=== PATIENT | female | born 1965 | race Caucasian/White ===

== ENCOUNTER → 2018-07-16 | Outpatient (CLI) | payer MEDICAID ==
[2018-07-16 10:26] LABS: microscopic required? NO
[2018-07-16 10:35] LABS: BASOPHIL % 0.5 % (0-2); PLATELET COUNT 253 x10^3mcL (130-400); RED CELL DISTRIBUTION WIDTH 13.3 % (11.5-14.5)
[2018-07-16 10:54] LABS: CHOLESTEROL/HDL RATIO 4.9
[2018-07-16 11:00] LABS: ALBUMIN 3.9 g/dL (3.4-5.0); ALKALINE PHOSPHATASE 98 U/L (46-116); ALT/SGPT 23 U/L (14-59); AST/SGOT 19 U/L (15-37); BILIRUBIN TOTAL 0.75 mg/dL (0.20-1.00); CARBON DIOXIDE 27.7 mmol/L (21-32); CHLORIDE SERUM 102 mmol/L (98-107); CREATININE SERUM 0.7 mg/dL (0.6-1.0); FREE T4 1.06 ng/dL (0.76-1.46); GFR1 > 60 mL/min; GLUCOSE SERUM 96 mg/dL (74-106); MAGNESIUM 2.1 mg/dL (1.8-2.4); POTASSIUM SERUM 4.2 mmol/L (3.5-5.1); SODIUM SERUM 138 mmol/L (136-145); TOTAL PROTEIN, SERUM 7.5 g/dL (6.4-8.2)
[2018-07-16 11:22] LABS: UA SPECIFIC GRAVITY <=1.005 (1.005-1.035); urine erythrocyte NEGATIVE (NEGATIVE)
== END | disposition home or self-care (01) ==
LOC: US 07-15 09:00
DX: Z00.00 Encounter for general adult medical examination without abnormal findings (principal)
CPT/HCPCS: 77067; 84439; 86431

== ENCOUNTER → 2018-07-31 | Outpatient (CLI) | payer MEDICAID | END | disposition home or self-care (01) | LOC: MA 08:27 → US 10:30 | PROC: BH41ZZZ Ultrasonography of Left Breast (ICD-10-PCS; principal; 2018-07-31) | PROC: BH01ZZZ Plain Radiography of Left Breast (ICD-10-PCS; 2018-07-31) | DX: R92.8 Other abnormal and inconclusive findings on diagnostic imaging of breast (principal) | CPT/HCPCS: 76642; 77065 ==

== ENCOUNTER 2018-12-03 09:01 | Inpatient (IN) | payer OTHER ==
[~2018-12-03] VITALS: Ht 157.5 cm; Wt 97.5 kg
[2018-12-03 09:25] VITALS: BP 134/74
--- NOTE | 2018-12-03 15:30 | NUR ---
RECEIVED PT FROM PACU. PT IS DROWSY, EASILY AROUSABLE TO VERBAL STIMULI. ORIENTED X4. DENIES DIZZINESS AND HEADACHE. ABLE TO FOLLOW SIMPLE COMMANDS. PUPILS ARE SLUGGISH. NO SOB NOTED, LUNG SOUNDS DIMINISHED ON THE BASES, O2 SAT=96% ON 2LPM/NC. DENIES CHEST PAIN/PRESSURE. C/O 3/10 ABDOMINAL PAIN, TOLERABLE AT THIS TIME. DENIES NAUSEA/VOMITING. LAST BM WAS YESTERDAY. BOWEL SOUNDS HYPOACTIVE. W/ SURGICAL DRESSING ON THE ABDOMEN (CDI) AND AN ABDOMINAL BINDER. W/ KRYSTLE DRAIN , NOTED SANGUINEOUS OUTPUT. IV SITE PATENT AND INTACT. SIDE RAILS UPX2. CALL LIGHT ON REACH. HOB ELEVATED AT 30 DEG. PT'S AND SON AT BEDSIDE. PRIMARY NURSE RYAN AT BEDSIDE FOR CONTINUITY OF CARE
[2018-12-03 16:03] VITALS: BP 134/86
[2018-12-03 16:08] VITALS: Ht 157.5 cm; Wt 97.5 kg
--- NOTE | 2018-12-03 16:53 | NUR ---
LR INFUSING AT 75 ML/HR/ NO REDNESS OR SWELLING NOTED.
--- NOTE | 2018-12-03 16:53 | NUR ---
PT LAYING IN BED RESTING, AA/0 X4. BREATHING EVEN AND UNLABORED ON RA/ TOLERATING WELL. NO ACUTE RESP DISTRESS OR SOB NOTED. DENIES ANY ABD PAIN OR DISCOMFORT AT THIS TIME, PROVIDED ICE CHIPS. IV TO THE L WRIST INTACT AND PATENT= INFUSING AT 70 ML/HR NO REDNESS OR SWELLING NOTED. WILL CONTINUE TO MONITOR.
[2018-12-03 17:45] VITALS: BP 128/81
--- NOTE | 2018-12-03 17:59 | NUR ---
NO ACUTE CHANGES AT THIS TIME, NO ACUTE RESP DISTRESS OR SOB NOTED. ABD BINDER AND DRSG INTACT/ NO NEW DRAINAGE NOTED. KRYSTLE DRAIN TOTAL OUTPUT 20ML/ IV TO THE LW INTACT AND PATENT. NO REDNESS OR SWELLING NOTED. WILL ENDORSE TO INCOMING RN.
--- NOTE | 2018-12-03 17:59 | NUR ---
CORRECTION TOTAL OUTPUT FOR KRYSTLE DRAIN 70 ML
--- NOTE | 2018-12-03 18:56 | NUR ---
PT C/O OF ABD PAIN 01/14, MEDICATED PER EMAR.
--- NOTE | 2018-12-03 19:00 | NUR ---
NO ACUTE CHANGES AT THIS TIME, NO ACUTE RESP DISTRESS OR SOB NOTED. WILL ENDORSE TO INCOMING RN.
[2018-12-03 19:19] VITALS: BP 139/86
--- NOTE | 2018-12-03 19:20 | NUR ---
RECEIVED PT FROM PREVIOUS SHIFT NURSE. PT AOX4, DENIES SWAN/DIZZINESS. MED SURG PT, DENIES CP/PRESSURE. LUNG SOUNDS DIMINISHED, ON RA. DENIES SOB/DIFFICULTY BREATHING. KRYSTLE DRAIN RLQ, INTACT, SANGUINOUS FLUID NOTED. INCISION ON ABD WITH BINDER IN PLACE. IV TO L.WRIST, INTACT AND PATENT. BED IN LOWEST POSITION. CALL LIGHT WITHIN REACH. WILL CONTINUE TO MONITOR.
--- NOTE | 2018-12-04 03:21 | NUR ---
PT RESTING IN BED. RR EVEN AND UNLABORED. IN NO ACUTE DISTRESS. CALL LIGHT WITHIN REACH. BED IN LOWEST POSITION. WILL CONTINUE TO MONITOR.
[2018-12-04 04:52] VITALS: BP 108/66
--- NOTE | 2018-12-04 07:08 | NUR ---
45ML SANGUINOUS FLUID EMPTIED FROM PT KRYSTLE DRAIN.
--- NOTE | 2018-12-04 07:10 | NUR ---
RECEIVED REPORT FROM MELISSA RN, PT IN BED IN NO ACUTE DISTRESS
--- NOTE | 2018-12-04 07:20 | NUR ---
PT IN BED, IN NO ACUTE DISTRESS, VERBAL, [place], ABLE TO MAKE NEEDS KNOWN, CALM AND COOPERATIVE, DENIED CP/PRESSURE/SWAN, DENIED N/V/D, PERRLA, NO REDNESS/DRAINAGE, RESP EVEN, NO COUGH/SOB, MEDSURG, CHEST RISE SYMMETRICALLY, ABD ROUND AND MILD TENDER TO TOUCH, DRESSING CDI, KRYSTLE TUBE PATENT AND GRAVITY DRAINED, BS HYPEACTIVE X 4, PALP PULSES, CAP REFILL < 3S, AMBULATORY, CONTINENT, IV PATENT AND INFUSIGN WELL, ALL NEEDS ADDRESSED AT THIS TIME, SAFETY PROTOCOL FOLLOWED, CONTINUE TO MONITOR
[2018-12-04 07:38] LABS: BASOPHIL % 0.2 % (0-2); PLATELET COUNT 213 x10^3mcL (130-400); RED CELL DISTRIBUTION WIDTH 13.4 % (11.5-14.5)
[2018-12-04 07:58] LABS: ALKALINE PHOSPHATASE 105 U/L (46-116); ALT/SGPT 45 U/L (14-59); AST/SGOT 30 U/L (15-37); BILIRUBIN TOTAL 0.73 mg/dL (0.20-1.00); CARBON DIOXIDE 21.9 mmol/L (21-32); CHLORIDE SERUM 106 mmol/L (98-107); CREATININE SERUM 0.8 mg/dL (0.6-1.0); GFR1 > 60 mL/min; GLUCOSE SERUM 97 mg/dL (74-106); MAGNESIUM 2.1 mg/dL (1.8-2.4); POTASSIUM SERUM 4.4 mmol/L (3.5-5.1); SODIUM SERUM 141 mmol/L (136-145); TOTAL PROTEIN, SERUM 6.7 g/dL (6.4-8.2)
[2018-12-04 08:07] LABS: ALBUMIN 3.2 g/dL (3.4-5.0)
[2018-12-04 08:42] VITALS: BP 118/77
--- NOTE | 2018-12-04 09:18 | NUR ---
PT REPORTED ABD PAIN AND DISCOMFRT, 10/14, DULL, ABD SURGICAL SITE, MORPHINE 4MG IVP X 1 PER MD PRN ORDER, TAKEN WELL, NO ASE NOTED AT THIS TIME, CONTINUE TO MONITOR
[2018-12-04 09:32] VITALS: BP 118/75
--- NOTE | 2018-12-04 13:17 | NUR ---
PT IN BED, IN NO ACUTE DISTRESS, REPORTED ABD PAIN AND DISCOMFORT, 8/10, DULL, ABD SURGICAL SITE, MORPHINE 4MG IVP X 1 PER MD PRN ORDER, TAKEN WELL, NO ASE NOTED AT THIS TIME, CONTINUE TO MONITOR
--- NOTE | 2018-12-04 15:18 | NUR ---
EDUCATION A/B IS USE, KRYSTLE TUBE DRAINAGE AND CALCULATION DRAINAGE GIVEN TO PT AND , VERBALLY UNDERSTANDING, ALL NEEDS ADDRESSED AT THIS TIME, SAFETY MONITOR
[2018-12-04 16:48] VITALS: BP 125/77
--- NOTE | 2018-12-04 17:36 | NUR ---
PT IN NO ACUTE DISTRESS, VERBAL, ABLE TO MAKE NEEDS KNOWN, AT BEDSIDE, RESP EVEN, NO SOB/COUGH, RA, MEDSURG, ABD ROUND AND NON-TENDER TO TOUCH, TOLERATED DIET WELL, SURGICAL DRESSING CDI, KRYSTLE TUBE PATENT AND DRAINED WELL, SEROSANGUINOUS DRAINAGE, CONTINENT, AMBULATORY, IV PATENT AND INFUSING WELL, NO INFILTRATION NOTED, ALL NEEDS ADDRESSED AT THIS TIME, SAFETY PROTOCOL FOLLOWED, WILL ENDORSE TO ONCOMING RN
--- NOTE | 2018-12-04 18:27 | NUR ---
COOLING METHOD APPLIED FOR FEVER PER PROTOCOL, TOLERATED WELL, CONTINUE TO MONITOR
--- NOTE | 2018-12-04 18:27 | NUR ---
PT TEMP NOTED 100.6, TEMPORAL, TYLENOL 325MG X 2 TABS GIVEN PER MD ORDER PRN, TAKEN WELL, CONTINUE TO MONITOR
--- NOTE | 2018-12-04 19:10 | NUR ---
REPORT RECEIVED FROM DAY SHIFT RN. PATIENT WAS SEEN AND IS RESTING COMFORTABLY IN BED. NO DISTRESS NOTED. BREATHING EVEN AND UNLABORED ON ROOM AIR. NO SOB OR RESP DISTRESS NOTED. HOB ELEVATED. NO C/O PAIN AT THIS TIME. DENIES CHEST PAIN/PRESSURE. IV TO THE LEFT WRIST INFUSING WELL. PATENT AND INTACT. NO REDNESS OR SWELLING NOTED. ABD BINDER IN PLACE WITH KRYSTLE DRAIN TO RLQ S/P SURGERY. MINIMAL SEROSANGUINEOUS OUTPUT NOTED. ABD SURGICAL INCISION NOTED, DRESSING CDI. C/O NAUSEA, BUT STATES IT'S TOLERABLE AT THIS TIME. COMFORT AND SAFETY MEASURES IN PLACE. I.S. AT BEDSIDE. PATIENT STATES SHE'S BEEN USING IT AROUND 10X Q1H. PATIENT REPORTS PASSING FLATUS AND BURPING. NO BM YET. BED IS LOCKED AND IN THE POSITION. SIDE RAILS UP X2. CALL LIGHT IS WITHIN REACH. EDUCATED PATIENT ON IMPORTANCE OF AMBULATING. PATIENT STATES SHE AMBULATED TODAY. WILL CONTINUE TO MONITOR.
--- NOTE | 2018-12-04 19:55 | NUR ---
ENGINE BUILDER REPORTED O2 SAT IS 86% ON ROOM AIR. PATIENT ALSO REPORTING SOB AND CHEST PAIN WITH INSPIRATION. APPLIED NC 2L. PATIENT NOW SATING AT 93% ON 2L NC. PATIENT REPORTS IMPROVEMENT WITH BREATHING AND CHEST PAIN. PATIENT STATED SHE USED INCENTIVE SPIROMETER EARLIER TODAY AND SAID HER CHEST PAIN WITH INSPIRATION STARTED AT THAT TIME. NO DISTRESS NOTED AT THIS TIME. WILL CONTINUE TO MONITOR.
--- NOTE | 2018-12-04 20:24 | NUR ---
PATIENT IS REQUESTING PRN AMBIEN INSTEAD. PATIENT STATES "I CAN'T SLEEP. I REALLY NEED TO GET SOME REST NOW." ADMINISTERED PRN AMBIEN PRESCRIBED. EDUCATED PATIENT ON POSS SIDE EFFECTS. VERBALIZED UNDERSTANDING. CALL LIGHT IS WITHIN REACH. WILL CONTINUE TO MONITOR.
[2018-12-04 20:26] VITALS: BP 102/68
--- NOTE | 2018-12-05 00:15 | NUR ---
C/O 6/10 ABD PAIN. PRN NORCO ADMINISTERED PRESCRIBED. EDUCATED PATIENT ON POSS SIDE EFFECTS. VERBALIZED UNDERSTANDING. NO DISTRESS NOTED. BREATHING EVEN AND UNLABORED ON 2L NC. DENIES SOB. CALL LIGHT IS WITHIN REACH. WILL CONTINUE TO MONITOR.
--- NOTE | 2018-12-05 01:46 | NUR ---
PATIENT IS RESTING IN BED WITH EYES CLOSED. NO DISTRESS NOTED. BREATHING EVEN AND UNLABORED. NO SOB NOTED. NO S/S OF PAIN NOTED. IVF INFUSING WELL. PATENT AND INTACT. NO REDNESS OR SWELLING NOTED. SAFETY MEASURES IN PLACE. CALL LIGHT IS WITHIN REACH. WILL CONTINUE TO MONITOR.
--- NOTE | 2018-12-05 05:00 | NUR ---
C/O 7/10 ABD PAIN. ADMINISTERED PRN NORCO PRESCRIBED. NO DISTRESS NOTED. BREATHING EVEN AND UNLABORED ON ROOM AIR. EDUCATED PATIENT ON MED. SAFETY MEASURES IN PLACE. CALL LIGHT IS WITHIN REACH. WILL CONTINUE TO MONITOR AND REASSESS PAIN LEVEL.
[2018-12-05 05:46] VITALS: BP 138/79
--- NOTE | 2018-12-05 06:17 | NUR ---
PATIENT RESTING IN INTERVALS THROUHGOUT THE NIGHT. NO ACUTE CHANGES NOTED. NO DISTRESS NOTED. BREATHING EVEN AND UNLABORED ON 2L NC. DENIES SOB. STATES HER CHEST FEELS SORE. C/O MILD NAUSEA, BUT STATES IT'S TOLERABLE. C/O ABD PAIN X2 S/P SURGERY. MEDICATED WITH PRN NORCO X2 WITH GOOD RELIEF. IV TO THE LEFT WRIST INFUSING WELL. PATENT AND INTACT. NO REDNESS OR SWELLING NOTED. ENCOURAGED PATIENT TO AMBULATE MORE THIS MORNING. NO BM ON THE SHIFT. HAS PASSED GAS AND BRUPED. ABD BINDER IN PLACE S/P SURGERY. ABD DRESSING CDI. KRYSTLE TO RLQ W/ 60ML OF SEROSANGUINEOUS OUTPUT NOTED. SAFETY MEASURES IN PLACE. CALL LIGHT IS WITHIN REACH. WILL ENDORSE CARE TO DAY SHIFT RN.
--- NOTE | 2018-12-05 07:10 | NUR ---
RECEIVED REPORT FROM DONTE RN, PT IN NO ACUTE DISTRESS
--- NOTE | 2018-12-05 07:40 | NUR ---
PT IN BED, IN NO ACUTE DISTRESS, VERBAL, ABLE TO MAKE NEEDS KNOWN, CALM AND COOPPERTIVE, PERRLA, NO REDNESS/DRAINAGE, RESP EVEN, NO SOB/COUGH, ON 2L/MIN, 97%, NC, DENIED CP/PRESSURE/SWAN, DENIED N/V/D, ABD ROUND AND MILD-TENDER TO TOUCH, KRYSTLE TUBE DRAINED WELL W/ GRAVITY, SEROSANGUIOUS, ABD BINDER ON, DRESSING CDI, IV PATENT AND INFUSING WELL, AMBULATORY, CONTINENT, CAP REFILL < 3S, PALP PULSES, ALL NEEDS ADDRESSED AT THIS TIME, SAFETY MONITOR, CONTINUE TO MONITOR
--- NOTE | 2018-12-05 08:02 | NUR ---
PT AMBULATED ALONG THE HALLWAY, RA, RESP EVEN, NO SOB, NO ACUTE DISTRESS, O2 SAT 95%
[2018-12-05 08:11] VITALS: BP 135/93
--- NOTE | 2018-12-05 12:04 | NUR ---
PT IN BED, IN NO ACUTE DISTRESS, AT BEDSIDE, ABD DRESSING CHANGED PER MD REQUESTED, TAKEN WELL, PT DID NOT WANT TO DC HOME TODAY, SAID WILL GO HOME TOMORROW TO NEW APPARTMENT D/T NEW CONTRACT START TOMORROW, PT MADE AWARE OF PROLONGED HOSPITALIZATION WILL INCREASE RISK FOR INFECTION, STILL WANT TO STAY, DR SOTELO AND CHARGE NURSE CONSTANCE MADE AWARE
--- NOTE | 2018-12-05 12:13 | NUR ---
DR SOTELO SEEN AND DISCUSSED RISK OF PROLONGED HOSPITALIZATION W/ PT AND AT BEDSIDE, VERBALIZED UNDERSTANDING, PT AGREED TO DC HOME TODAY, NO FURTHER CONCERNS NEEDED WHEN ASKED AT THIS TIME
[2018-12-05 13:16] VITALS: BP 118/75; BP 135/93
--- NOTE | 2018-12-05 13:58 | NUR ---
PT IN BED, IN NO ACUTE DISTRESS, AT BEDSIDE, DC PAPER SIGNED AND KEPT IN CHART, PT AWARE OF NEW PRESCRIPTION IN DC PACKAGE, WOUND CARE DOEN AND EDUCATION R/T DRESSING CHANGED PRN GIVEN, VERBALLY UNDERSTANDING, PT WANTED TO DC HOME AFTER DINNER AND REQUESTED TO HAVE PAIN MED MEDICATE PRIOR DC D/T PT AND UNABLE TO P/U NEW PRESCRIPTION AT [facility] UNTIL TOMORROW, KRYSTLE DRAINED BY PT UNDER SUPERVISION OF RN, DEMONSTRATED WELL, EDUCATION R/T PAIN MED, S/E, INFECTION MONITOR GIVEN TO PT AND , VERBALLY UNDERSTANDING, PT TOLERATED LUNCH W/ REG DIET WELL, ALL NEEDS ADDRESSED AT THIS TIME, SAFETY MONITOR, CONTINUE TO MONITOR
[2018-12-05 17:22] VITALS: BP 123/80; BP 98/76
--- NOTE | 2018-12-05 17:41 | NUR ---
DRESSING WOUND SUPPLY X 7 DAYS GIVEN TO PT AND , VERBALLY UNDERSTANDING HWO TO CHANGE WOUDN DRESSING, IV REMOVED, IV CATH TIP INTACT, NO ACTIVE BLEEDING NOTED, WOUND PIC TAKEN PRIOR DC, KEPT IN CHART, DRESING CDI, PT IN NO ACUTE DISTRESS
--- NOTE | 2018-12-05 18:10 | NUR ---
PT DC HOME, SON P.U PT AND VIA CAR, PT SAID SON WILL DROP BY PHARMACY TO GET PRESCRIBED PAIN MED, PT IN NO ACUTE DISTRESS, NUIRSING STAFFS ASISTED PT TO LOBBY VIA WC, PT WENT HOME W/ AND SON
== END 2018-12-05 18:10 | disposition home or self-care (01) | DRG 227 ==
LOC: DS 09:01 → OR 12:45 → MU 15:03
PROVIDERS: Surgery; ADMIT Internal Medicine Pulmonary Disease
PROC: 0DNW0ZZ Release Peritoneum, Open Approach (ICD-10-PCS; 2018-12-03)
PROC: 0WUF0JZ Supplement Abdominal Wall with Synthetic Substitute, Open Approach (ICD-10-PCS; principal; 2018-12-03 12:45)
DX: K43.0 Incisional hernia with obstruction, without gangrene (principal); E66.9 Obesity, unspecified; K66.0 Peritoneal adhesions (postprocedural) (postinfection); Z68.39 Body mass index [BMI] 39.0-39.9, adult
CPT/HCPCS: 94150; C1781; G0378; J0330; J0690; J1170; J2270; J2405; J2550; J2704; J2710; J2765; J3010; J3490; J7120